=== PATIENT | male | born 2000 | race Two or more races ===

== ENCOUNTER 2021-12-27 09:49 | Emergency (ER) | payer OTHER ==
[~2021-12-27] VITALS: Ht 170.2 cm; Wt 81.7 kg
[2021-12-27 10:00] VITALS: BP 143/74
[2021-12-27] MEDS ORDERED: ONDANSETRON ODT 4 MG TAB.RAPDIS PO ONE (10:15)
[2021-12-27] MEDS ORDERED: KETOROLAC 60 MG/2 ML VIAL. IM ONE (10:15)
--- NOTE | 2021-12-27 10:16 | PHYS DOC ---
Past History Past Surgical History: No Surgical History General Adult EDM: Chief Complaint: COUGH HPI: HPI: Patient is a 21-year-old male who presents to the emergency department with generalized headache, nonproductive cough, mild shortness of breath, sore throat and nausea that started yesterday. Patient reports that his girlfriend is sick with similar symptoms. Patient has no medical history. He denies fever, diarrhea, recent travel. He reports that his vaccines are up-to-date. Review of Systems: Review of Systems: Constitutional: See HPI HENT: See HPI Respiratory: See HPI GI: See HPI Neurologic: See HPI Current Medications: Current Meds: Current Medications Medications (Trade) Dose Ordered Sig/Cb Start Time Stop Time Status Last Admin Dose Admin Ondansetron HCl (Zofran Odt) 4 mg 1X ONCE 12/27/21 10:15 12/27/21 10:16 Allergies: Allergies: Allergies Coded Allergies Type Severity Reaction Last Updated Verified No Known Drug Allergies 12/27/21 No Physical Exam: PE: Constitutional: Well developed, well nourished, no acute distress, non-toxic appearance. [] HENT: Normocephalic, atraumatic, bilateral external ears normal, 2+ tonsillar enlargement with erythema, no tonsillar exudate, postnasal drainage noted, uvula midline, no trismus or phonation changes, patient maintaining secretions, oropharynx moist, no oral exudates, nose normal. [] Eyes: PERRL, EOMI, conjunctiva normal, no discharge. [] Neck: Normal range of motion, no tenderness, supple, no stridor. [] Cardiovascular:Heart rate tachycardic rhythm, no murmur [] Lungs & Thorax: Bilateral breath sounds clear to auscultation [] Abdomen: Bowel sounds normal, soft, no tenderness, no masses, no pulsatile masses. [] Skin: Warm, dry, no erythema, no rash. [] Back: No tenderness, normal range of motion Extremities: No tenderness, no cyanosis, no clubbing, ROM intact, no edema. [] Neurologic: Alert and oriented X 3, normal motor function, normal sensory function, no focal deficits noted. [] Psychologic: Affect normal, judgement normal, mood normal. [] Current Patient Data: Labs: Laboratory Tests Test 12/27/21 10:14 Influenza Type A (Rapid) Negative Influenza Type B (Rapid) Negative SARS-CoV-2 Antigen (Rapid) Negative Current Medications Medications (Trade) Dose Ordered Sig/Cb Route PRN Reason Start Time Stop Time Status Last Admin Dose Admin Ondansetron HCl (Zofran Odt) 4 mg 1X ONCE PO 12/27/21 10:15 12/27/21 10:16 DC 12/27/21 10:30 Ketorolac Tromethamine (Toradol Im) 60 mg 1X ONCE IM 12/27/21 10:15 12/27/21 10:16 DC 12/27/21 10:31 Vital Signs: Vital Signs Date Time Temp Pulse Resp B/P (MAP) Pulse Ox O2 Delivery O2 Flow Rate FiO2 12/27/21 10:00 98.2 125 20 143/74 (97) 96 Room Air EKG: EKG: [] Radiology/Procedures: Radiology/Procedures: []REASON: cough soa PROCEDURE: CHEST PA & LATERAL EXAMINATION: Chest radiograph. VIEWS: Frontal and lateral views the chest COMPARISON: None INDICATION:21 years, Male, shortness of air. FINDINGS: Normal cardiomediastinal silhouette. No focal consolidation. No pleural effusion or pneumothorax. No acute osseous process. IMPRESSION: No acute cardiopulmonary process. Electronically signed by: Grant House DO (12/27/2021 10:37 AM) [id number] DICTATED AND SIGNED BY: GRANT HOUSE DO DATE: 12/27/21 1034 CC: JUANITA GRISSOM [employer]; PCP,NO ~ Heart Score: C/O Chest Pain: N/A Risk Factors: Risk Factors: DM, Current or recent (<one month) smoker, HTN, HLP, family history of CAD, obesity. Risk Scores: Score 0 - 3: 2.5% MACE over next 6 weeks - Discharge Home Score 4 - 6: 20.3% MACE over next 6 weeks - Admit for Clinical Observation Score 7 - 10: 72.7% MACE over next 6 weeks - Early Invasive Strategies Course & Med Decision Making: Course & Med Decision Making Pertinent Labs and Imaging studies reviewed. (See chart for details) [] Patient presents to the emergency department for multiple viral symptoms including cough, sore throat, nausea, generalized headaches with a sick exposure. Patient will be tested for Covid, influenza and strep throat. Will have a chest x-ray due to his report of cough and shortness of breath to rule out pneumonia. Patient treated with Zofran for his nausea and Toradol for his headache. He will be p.o. challenged in the emergency department. Patient is mildly tachycardic with a heart rate of 125. He is afebrile. Patient reports that his nausea has resolved while in the ER. He had negative influenza, COVID and strep testing. Chest x-ray did not show any pneumonia. Following treatment in the emergency department, patient's heart rate has improved to 105 bpm. Patient likely experiencing viral illness. Educated on symptomatic treatment. I discussed with patient all findings and diagnostic testing as well as the need to follow-up with PCP for further evaluation and treatment or return to the ER if any new or worsening symptoms. Strict return precautions were also discussed at length. Patient voiced understanding and agreement with the plan. Patient is hemodynamically stable at the time of disposition. Dragon Disclaimer: Dragon Disclaimer: This electronic medical record was generated, in whole or in part, using a voice recognition dictation system. Departure Departure: Impression: Primary Impression: Viral syndrome Disposition: HOME / SELF CARE / HOMELESS Condition: GOOD Referrals: PCP,NO (PCP) Patient Instructions: Nausea and Vomiting, [id number], Viral Pharyngitis Additional Instructions: You were seen in the emergency department for multiple complaints. You likely you are experiencing a viral illness. He had negative influenza, COVID and strep testing. Your chest x-ray was negative for any acute findings. Please increase your fluids and rest. Take Tylenol and ibuprofen for any headaches or fever. Perform warm salt water gargles for your sore throat. You can take Delsym [id number] cough medication. You are being discharged home with nausea medication that you can take as needed. Follow-up with your primary care provider on Wednesday regarding your ER visit. Return to the emergency department if you develop shortness of breath, chest pain, high fevers refractory to treatment, intractable nausea or vomiting. Scripts Ondansetron (ONDANSETRON ODT) 4 Mg Tab.rapdis 1 TAB PO PRN Q6-8HRS for nausea for 7 Days, #28 TAB 0 Refills Prov: JUANITA GRISSOM APRN 12/27/21 JUANITA GRISSOM APRN Dec 27, 2021 10:16
--- NOTE | 2021-12-27 10:39 | RAD ---
EXAMINATION: Chest radiograph. VIEWS: Frontal and lateral views the chest COMPARISON: None INDICATION:21 years, Male, shortness of air. FINDINGS: Normal cardiomediastinal silhouette. No focal consolidation. No pleural effusion or pneumothorax. No acute osseous process. IMPRESSION: No acute cardiopulmonary process. Electronically signed by: Grant Billingsley DO (12/27/2021 10:37 AM) [id number]
[2021-12-27 11:10] LABS: INFLUENZA A PATIENT NEGATIVE (NEGATIVE); INFLUENZA B PATIENT NEGATIVE (NEGATIVE)
[2021-12-27] MEDS ORDERED: ONDA4TAB12 PO (11:39)
== END 2021-12-27 11:50 | disposition home or self-care (01) ==
LOC: ER 09:49
DX: B34.9 Viral infection, unspecified (principal); Z20.822 Contact with and (suspected) exposure to COVID-19
CPT/HCPCS: 71046; 87070; 87428; 87880; 96372; 99284; J1885; Q0162